=== PATIENT | male | born 1950 | race Caucasian/White ===

== ENCOUNTER → 2020-01-07 | Outpatient (REF) | payer MEDICARE ==
[2020-01-07 11:55] LABS: BLOOD UREA NITROGEN 16 MG/DL (7-18); CARBON DIOXIDE LEVEL 32 MEQ/L (21-32); CHLORIDE LEVEL 105 MEQ/L (98-107); CREATININE FOR GFR 1.11 MG/DL (0.70-1.30); GLOMERULAR FILTRATION RATE > 60.0 (>49); GLUCOSE, FASTING 74 MG/DL (70-100); SODIUM LEVEL 142 MEQ/L (136-145)
== END ==
LOC: M PLALAB 09:50
PROVIDERS: ATTEND Urology
DX: R31.0 Gross hematuria (principal)
CPT/HCPCS: 36415; 80048; 81002; 87086; 88108; G0463

== ENCOUNTER → 2020-01-14 | Outpatient (CLI) | payer MEDICARE, BC ==
[~2020-01-14] MED LIST: ISOVUE-370 76% 100ML VIAL (Q9967) As Ordered ONE
--- NOTE | 2020-01-14 11:57 | REPVR ---
PROCEDURE INFORMATION: Exam: CT Abdomen And Pelvis Without And With Contrast; Urography Exam date and time: 01/14/2020 10:54 AM Age: 70 years old Clinical indication: Other: Hematuria; Additional info: Gross hematuria TECHNIQUE: Imaging protocol: Computed tomography of the abdomen and pelvis without and with intravenous contrast. Exam focused on the kidneys and ureters. Radiation optimization: All CT scans at this facility use at least one of these dose optimization techniques: automated exposure control; mA and/or kV adjustment per patient size (includes targeted exams where dose is matched to clinical indication); or iterative reconstruction. Contrast material: ISOVUE 370; Contrast volume: 100 ml; Contrast route: IV; COMPARISON: No relevant prior studies available. FINDINGS: Lungs: Mild interstitial prominence, trace dependent airspace disease, and poorly defined 7 mm nodular density ground-glass attenuation in the right lower lobe. Recommend CT Chest at 3-6 months. Subsequent management should be based on the most suspicious nodule(s). ShimonMahon Olivarez, [employer]ner [employer], 2017. Liver: No focal hepatic mass. Gallbladder and bile ducts: No cholelithiasis or biliary ductal dilatation. Pancreas: No pancreatic mass or ductal dilatation. Spleen: Enlarged spleen measuring 12.8 cm in length. Adrenals: Unremarkable adrenals. Kidneys and ureters: Bilateral parapelvic renal cysts, along with a 13 mm cortical cyst in the lateral left kidney. No hydronephrosis. Stomach and bowel: Questionable wall thickening in the nondistended stomach. No significant small bowel dilatation. Copious stool, in a pattern of constipation. Diverticula, without pericolonic inflammation. Appendix: No acute appendicitis. Intraperitoneal space: No free fluid. Lymph nodes: Subcentimeter lymph nodes. Vasculature: Normal caliber of the abdominal aorta. Vascular calcification. Bladder: Wall thickening in the nondistended bladder. Reproductive: Massively enlarged prostate producing extrinsic compression of the bladder base loss of normal fascial planes. Correlation with PSA is recommended. Prostate calcifications. Bones/joints: Osteopenia, Schmorl's nodes, degenerative change, and disc bulging. Soft tissues: Small fat containing umbilical and inguinal hernias. IMPRESSION: 1. Massively enlarged prostate producing extrinsic compression of the bladder base loss of normal fascial planes. Correlation with PSA is recommended. 2. Wall thickening in the nondistended bladder. 3. Poorly defined 7 mm nodular density ground-glass attenuation in the right lower lobe. 4. Additional findings as described above. Electronically signed by: Dereck Caraballo On 01/14/2020 11:57:19 AM
== END ==
LOC: M RAD 10:40
PROVIDERS: ATTEND Urology
DX: R31.0 Gross hematuria (principal)
CPT/HCPCS: 74178; Q9967

== ENCOUNTER → 2020-01-29 | Outpatient (REF) | payer MEDICARE, BC | LOC: M SMT 12:48 | PROVIDERS: ATTEND Urology | DX: R31.0 Gross hematuria (principal) ==

== ENCOUNTER → 2020-04-01 | Outpatient (CLI) | payer MEDICARE, BC ==
--- NOTE | 2020-04-01 15:18 | REP ---
SCROTAL ULTRASOUND: Real-time sonographic evaluation of the scrotum and contents performed. The testicles are normal in size and echotexture, right testicle measuring 4.1 x 1.4 x 2.7 cm and left testicle 4.2 x 1.5 x 2.6 cm. There is no testicular mass or torsion. Blood flow is seen in each testicle with duplex Doppler evaluation. The cyst in the head of the right epididymis measures 4 mm in diameter. There is a small right hydrocele. Over the lateral aspect of the lower pole of the left testicle, there is a focal 4 mm area of shadowing which may represent a small calcification at the margin of the testicle. IMPRESSION: No testicular mass or torsion. There is a 4 mm cyst in the head of the right epididymis. There is a small right hydrocele. Electronically Signed by aJvi Phillips MD 04/01/2020 04:10 P
== END ==
LOC: M RAD 13:20
PROVIDERS: ATTEND Student in an Organized Health Care Education/Training Program
DX: N50.819 Testicular pain, unspecified (principal)

== ENCOUNTER → 2020-08-21 | Outpatient (CLI) | payer MEDICARE, BC ==
[~2020-08-21] MED LIST changes: +ASPI81TA86 PO; +FLOM0.4C39 PO; +GLUC1TAB58 PO; -ISOVUE-370 76% 100ML VIAL (Q9967) As Ordered ONE; +LORA-622 PO; +PAXI10TA12 PO; +SIMV20TA22 PO; +VITA100054 PO
== END ==
LOC: M LABSMTC 09:50
PROVIDERS: ATTEND Anesthesiology
DX: Z01.812 Encounter for preprocedural laboratory examination (principal); Z20.828 Contact with and (suspected) exposure to other viral communicable diseases
CPT/HCPCS: C9803; U0003

== ENCOUNTER 2020-08-26 06:03 | Day surgery (SDC) | payer MEDICARE, BC ==
[~2020-08-26] VITALS: Ht 167.6 cm; Wt 80.3 kg
[2020-08-26] MEDS ORDERED: LR 1,000 ML IV ONE (07:00)
[2020-08-26] MEDS ORDERED: ceFAZolin SOD 2 GM in IV 1 EA IV ONE (07:00)
[2020-08-26] MEDS ORDERED: BUPIVACAINE HCL 0.25% 30ML VIAL As Ordered ONE ×2 (07:55→07:56)
[2020-08-26] MEDS ORDERED: BUPIVACAINE/EPIN 0.5% 30 ML VIAL As Ordered ONE (07:56)
[2020-08-26] MEDS ORDERED: LIDOCAINE 2% 100MG/5ML SDV (FOR ANES.) As Ordered ONE (08:04)
[2020-08-26] MEDS ORDERED: propofoL 200 MG/20 ML VIAL As Ordered ONE (08:04)
[2020-08-26] MEDS ORDERED: ROCURONIUM BROMIDE 50 MG/5 ML VIAL As Ordered ONE (08:04)
[2020-08-26] MEDS ORDERED: MIDAZOLAM INJ 2MG/2ML VIAL (J2250 PER 1MG) As Ordered ONE (08:05)
[2020-08-26] MEDS ORDERED: fentaNYL 250 MCG/5 ML INJECTION (J3010) As Ordered ONE (08:05)
[2020-08-26] MEDS ORDERED: ATROPINE SULF 0.4 MG/ML 1ML VIAL (J0461) As Ordered ONE (08:41)
[2020-08-26] MEDS ORDERED: dexameTHASONE 4 MG/ML 1ML VIAL (J1100 PER 1MG) As Ordered ONE (08:59)
[2020-08-26] MEDS ORDERED: ONDANSETRON 4MG/2ML VIAL As Ordered ONE (08:59)
[2020-08-26] MEDS ORDERED: KETOROLAC 60MG 2ML VIAL As Ordered ONE (08:59)
[2020-08-26] MEDS ORDERED: ACETAMINOPHEN 1000MG 100ML IV BTL (OFIRMEV) (J0131 PER 10MG) As Ordered ONE (09:01)
[2020-08-26] MEDS ORDERED: SUGAMMADEX SODIUM 500 MG/5 ML VIAL (BRIDION) As Ordered ONE (09:06)
[2020-08-26] MEDS ORDERED: LR 1,000 ML IV SCH (09:45)
[2020-08-26] MEDS ORDERED: ONDANSETRON 4MG/2ML VIAL IV PRN (09:45)
[2020-08-26] MEDS ORDERED: KETOROLAC 30 MG/ML 1ML VIAL IV PRN (09:45)
[2020-08-26] MEDS ORDERED: METOCLOPRAMIDE INJ 10MG/2ML VIAL (J2765 PER 1) IV PRN (09:45)
[2020-08-26] MEDS ORDERED: fentaNYL 100 MCG/2 ML INJECTION (J3010) IV PRN (09:45)
[2020-08-26] MEDS ORDERED: oxyCODONE 5MG TAB PO PRN (09:45)
[2020-08-26] MEDS ORDERED: NORCO, ANEXSIA 5/325MG TABLET (HYDROcodone/ACETAMINOPHEN) PO PRN (10:00)
[2020-08-26] MEDS ORDERED: ePHEDrine SULFATE 25 MG/5 ML(5MG/ML) SYRINGE As Ordered ONE (10:28)
[2020-08-26 10:55] VITALS: BP 194/83
--- NOTE | 2020-08-29 08:15 | RO ---
DATE OF OPERATION: 08/26/2020 PREOPERATIVE DIAGNOSIS: Right inguinal hernia. POSTOPERATIVE DIAGNOSIS: Right inguinal hernia. PROCEDURE: Robotic right inguinal hernia repair. SURGEON: Javi Davis DO CASINO CASHIER: Jillian Monahan ANESTHESIA: General. EBL: 5. COMPLICATIONS: None. INDICATION FOR PROCEDURE: The patient is a 70-year-old male, presents with right groin pain, found to have a right inguinal hernia. Recommendation was to proceed with repair. Risks and benefits of the procedure are not limited to, but include bleeding, infection, hernia recurrence, hernia inflammation, damage to surrounding structures and need for further surgery were discussed in detail with the patient and informed consent was obtained and procedure was planned. PROCEDURE: The patient was brought back to operating room 7. After successful sedation, the abdomen was sterilely prepped and draped. Next time-out was done to confirm proper patient and proper procedure. Following that, an 8 mm incision was made in the left upper quadrant, a Veress needle was inserted and the abdomen was insufflated to 50 mmHg. The Veress needle was then removed. An 8 mm Optiview port was used to gain access to the abdomen. Once the abdomen was entered, two more ports were placed, one supraumbilically in the midline, one in the right upper quadrant. Next, the right groin was examined. The robot was then docked to the ports. Next, from the console, in the right groin there was an obvious indirect defect visible through the peritoneum. Preperitoneal space was then dissected free with a curved incision. Preperitoneal space was dissected revealing the small indirect and then very large wide-neck direct defect as well. Once this area was completely dissected free large 3DMax light mesh was placed into the right preperitoneal space, sutured to the pubic symphysis using 3-0 Vicryl suture. A couple sutures were also placed from the mesh on the superomedial border to hold them outside of the direct defect as well. The direct defect was too large to be closed because it was shallow in depth but very wide neck on it. Once that was completed the peritoneal defect was closed with running 3-0 V-Loc. The abdomen was desufflated, skin incisions were closed with 4-0 Vicryl subcuticular sutures. The abdomen was cleaned and dry. Steri- Strips, 4 x 4 and tape were applied. MTDD
== END 2020-08-26 12:00 | disposition home or self-care (01) ==
LOC: M SDC 06:03
PROVIDERS: ATTEND Surgery
DX: K40.90 Unilateral inguinal hernia, without obstruction or gangrene, not specified as recurrent (principal); I10 Essential (primary) hypertension; I25.10 Atherosclerotic heart disease of native coronary artery without angina pectoris; I25.2 Old myocardial infarction; E78.5 Hyperlipidemia, unspecified; F41.9 Anxiety disorder, unspecified; N40.0 Benign prostatic hyperplasia without lower urinary tract symptoms; Z79.82 Long term (current) use of aspirin; Z98.61 Coronary angioplasty status
CPT/HCPCS: 49650; C1781; J0131; J0461; J0690; J1100; J1885; J2250; J2405; J3010; S2900

== ENCOUNTER → 2022-07-12 | Outpatient (REF) | payer MEDICARE, BC ==
[2022-07-12 13:53] LABS: APPEARANCE, URINE MANUAL CLEAR (CLEAR); BILIRUBIN, URINE MANUAL NEGATIVE (NEGATIVE); BLOOD URINE MANUAL NEGATIVE (NEGATIVE); COLOR, URINE MANUAL YELLOW (YELLOW); GLUCOSE, URINE (UA) MANUAL NEGATIVE (NEGATIVE); KETONE, URINE MANUAL NEGATIVE (NEGATIVE); LEUKOCYTE ESTERASE, URINE MAN NEGATIVE (NEGATIVE); NITRITE, URINE MANUAL NEGATIVE (NEGATIVE); PROTEIN, URINE MANUAL NEGATIVE (NEGATIVE); SPECIFIC GRAVITY,URINE MANUAL 1.015 (1.002-1.035); UROBILINOGEN, URINE MANUAL NORMAL (NORMAL)
== END ==
LOC: M SMT 12:57
PROVIDERS: ATTEND Urology
DX: N40.0 Benign prostatic hyperplasia without lower urinary tract symptoms (principal)